=== PATIENT | male | born 1990 ===

== ENCOUNTER 2017-02-14 13:34 | Emergency (ER) | payer OTHER ==
[2017-02-14 13:44] VITALS: TEMP 98.5; BMI 25.8
--- NOTE | 2017-02-14 14:33 | ED PDOC ---
Arrival/HPI - General Chief Complaint: Shortness Of Breath Time Seen by Provider: 02/14/17 14:10 Historian: Patient - History of Present Illness Narrative History of Present Illness (Text): 02/14/17 14:10 Patient still in waiting room 02/14/17 14:50 This 26 yo male who denies pmh, presents to this ED c/o palpitation, sob, diaphoresis, feeling nervousness x [employer]. Patient admits having similar symptoms in the past. He stated he normally does exercise when he feels anxious. Today , after eating lunch, he felt mild anxious, so he started playing soccer. After he game, while resting, his "anxiety" worsen. He never look for medical treatment in the past. Patient denies syncope, recent travel, sick contact, abdominal pain, or urinary symptoms. Patient admits he has a very stressful job Past Medical History - Provider Review Nursing Documentation Reviewed: Yes - Infectious Disease Hx of Infectious Diseases: None - Psychiatric Hx Substance Use: No Family/Social History - Physician Review Nursing Documentation Reviewed: Yes Family/Social History: Other (noncontributory) Smoking Status: Never Smoked Hx Alcohol Use: Yes Frequency of alcohol use: Socially Hx Substance Use: No Allergies/Home Meds Allergies/Adverse Reactions: Allergies No Known Allergies Allergy (Verified 02/14/17 14:21) Home Medications: Home Meds Medication Instructions Recorded Confirmed No Known Home Med 02/14/17 02/14/17 Review of Systems - Review of Systems Constitutional: Normal. absent: Fatigue, Weight Change, Fevers Eyes: Normal. absent: Photophobia ENT: Normal Respiratory: SOB. absent: Cough, Sputum, Wheezing Cardiovascular: Palpitations. absent: Chest Pain, Edema, Calf Pain, BARAJAS, Orthopnea, Syncope Gastrointestinal: Normal. absent: Abdominal Pain, Nausea, Vomiting Genitourinary Male: Normal. absent: Dysuria, Frequency, Hematuria Musculoskeletal: Normal. absent: Back Pain Skin: Normal Neurological: Normal. absent: Headache, Dizziness, Focal Weakness, Gait Changes , Speech Changes Endocrine: Normal Hemo/Lymphatic: Normal Psychiatric: Anxiety. absent: Depression, Suicidal Ideation Physical Exam Vital Signs Temp Pulse Resp BP Pulse Ox 02/14/17 19:17 95 H 18 136/83 97 02/14/17 15:26 89 18 132/74 98 02/14/17 13:45 22 98 02/14/17 13:41 98.5 F 114 H 20 130/84 100 Temperature: Afebrile Blood Pressure: Normal Pulse: Regular Respiratory Rate: Tachypneic Appearance: Positive for: Well-Appearing, Non-Toxic, Comfortable Pain Distress: None Mental Status: Positive for: Alert and Oriented X 3 - Systems Exam Head: Present: Atraumatic, Normocephalic Pupils: Present: PERRL Extroacular Muscles: Present: EOMI Conjunctiva: Present: Normal Mouth: Present: Moist Mucous Membranes Neck: Present: Normal Range of Motion Respiratory/Chest: Present: Clear to Auscultation, Good Air Exchange. No: Respiratory Distress, Accessory Muscle Use Cardiovascular: Present: Regular Rate and Rhythm, Normal S1, S2. No: Murmurs Abdomen: Present: Normal Bowel Sounds. No: Tenderness, Distention, Peritoneal Signs Back: Present: Normal Inspection Upper Extremity: Present: Normal Inspection. No: Cyanosis, Edema Lower Extremity: Present: Normal Inspection. No: Edema Neurological: Present: GCS=15, CN II-XII Intact, Speech Normal Skin: Present: Warm, Dry, Normal Color. No: Rashes Psychiatric: Present: Alert, Oriented x 3, Anxious. No: Suicidal Ideation, Homicidal Ideation, Delusional Medical Decision Making ED Course and Treatment: 02/14/17 19:04 Re-evaluation. Patient feels better. Discussed results and plan with patient who expresses understanding. All questions answered and there is agreement with the plan to discharge home with instructions. Patient stable for discharge. Return if symptoms persist or worsen. Re-evaluation Time: 19:04 Reassessment Condition: Re-examined, Improved - Lab Interpretations Lab Results: 02/14/17 15:30 02/14/17 15:30 Lab Results 02/14/17 15:30: Sodium 142, Potassium 4.5, Chloride 105, Carbon Dioxide 26, Anion Gap 16, BUN 12, Creatinine 0.8, Est GFR ( Amer) > 60, Est GFR (Non- Af Amer) > 60, Random Glucose 105, Calcium 9.7, Magnesium 2.0, Total Bilirubin 0.5, AST 29, ALT 27, Alkaline Phosphatase 68, Total Protein 7.5, Albumin 4.8, Globulin 2.8, Albumin/Globulin Ratio 1.7 02/14/17 15:30: D-Dimer, Quantitative 388 H 02/14/17 15:30: WBC 8.4, RBC 4.70, Hgb 13.6 L, Hct 40.4 L, MCV 86.0, MCH 28.9, MCHC 33.7, RDW 12.0, Plt Count 238, MPV 10.3, Gran % 74.5 H, Lymph % (Auto) 18.3 L, Tillman % (Auto) 6.7 H, Eos % (Auto) 0.4 L, Baso % (Auto) 0.1, Gran # 6.22 , Lymph # 1.5, Tillman # 0.6, Eos # 0.0, Baso # 0.01 I have reviewed the lab results: Yes Interpretation: No clinic. lab abnormalty (except for elevated Ddimer) - RAD Interpretation Narrative RAD Interpretations (Text): 02/14/17 19:04 Accession No. : [id number] Patient Name / ID : ERICK MAGALLON / [id number] Exam Date : 02/14/2017 16:58:14 ( Approved ) Study Comment : Sex / Age : M / 26Y Creator : Kodak Johnson MD Dictator : Human Factors Specialist : Truck Service Manager : Kodak Johnson MD Approver2 : Report Date : 02/14/2017 18:49:24 My Comment : PROCEDURE: CT Chest with contrast (Pulmonary Angiogram) HISTORY: sob COMPARISON: None available. TECHNIQUE: Axial computed tomography images were obtained of the chest in the pulmonary arterial phase of enhancement. Coronal and sagittal reformatted images were created and reviewed. Intravenous contrast dose: 100 cc Visipaque 320 Radiation dose: Total exam DLP = 471.91 mGy-cm. This CT exam was performed using one or more of the following dose reduction techniques: Automated exposure control, adjustment of the mA and/or kV according to patient size, and/or use of iterative reconstruction technique. Note the examination is somewhat limited due to streak and beam hardening artifact FINDINGS: PULMONARY ARTERIES: The visualized pulmonary trunk, right and left main, segmental and proximal subsegmental branches of the pulmonary arteries appear well opacified with no definitive filling defects seen to suggest acute pulmonary embolus. AORTA: The ascending thoracic aorta measures approximately 2.79 cm and descending thoracic aorta measures approximately 1.98 cm. LUNGS: Unremarkable. No nodule, mass or pulmonary consolidation. PLEURAL SPACES: Unremarkable. No effusion or pneumothorax HEART: Unremarkable. No cardiomegaly. No significant pericardial effusion. . .. LYMPH NODES: No significant mediastinal or hilar adenopathy BONES, CHEST WALL: The vertebral bodies intact with no evidence of acute or chronic compression fractures nor retropulsed fragments. Minimal multilevel degenerative spondylosis. OTHER FINDINGS: Unremarkable. IMPRESSION: Limited study due to streak and beam hardening artifact. . No evidence of acute central pulmonary embolus. Radiology Orders: 02/14/17 14:57 CHEST PORTABLE [RAD] Stat 02/14/17 16:11 ANGIO CHEST PE PROTOCOL [CT] Stat - EKG Interpretation Interpreted by ED Physician: Yes (sinus tachycardia @ 104 bpm. Normal interval) Type: 12 lead EKG Comparison: No previous EKG avail. - Medication Orders Current Medication Orders: Discontinued Medications Alprazolam (Xanax) 0.25 mg PO STAT STA PRN Reason: Protocol Stop: 02/14/17 14:59 Last Admin: 02/14/17 15:43 Dose: 0.25 mg Disposition/Present on Arrival - Present on Arrival Any Indicators Present on Arrival: No History of DVT/PE: No History of Uncontrolled Diabetes: No Urinary Catheter: No History of Decub. Ulcer: No History Surgical Site Infection Following: None - Disposition Have Diagnosis and Disposition been Completed?: Yes Diagnosis: Shortness of breath, Chest pain, Feeling anxious Disposition: HOME/ ROUTINE Disposition Time: 19:05 Patient Plan: Discharge Condition: GOOD Discharge Instructions (ExitCare): Chest Pain (ED) Additional Instructions: Call private doctor for follow up visit in 1-2 days. Return to emergency if symptoms worsen. Try to do relaxation technique to cope with your stress. Referrals: PCP,NO [Primary Care Provider] - Follow up with primary Cyrli Dominique MD [Staff Provider] - Follow up with primary Forms: [employer] (Sl[place]ak)
[2017-02-14 15:28] VITALS: RESP 18
[2017-02-14 15:45] LABS: BASO # 0.01 K/mm3 (0.0-2.0); BASO % 0.1 % (0.0-3.0); EOS % 0.4 % (1.5-5.0); GRAN # 6.22 (1.4-6.5); GRAN % 74.5 % (50.0-68.0); HEMATOCRIT 40.4 % (42.0-52.0); LYMPH # 1.5 (1.2-3.4); LYMPH % 18.3 % (22.0-35.0); MEAN CORPUSCULAR HEMOGLOBIN 28.9 pg (25.0-35.0); MEAN CORPUSCULAR HGB CONC 33.7 g/dl (31.0-37.0); MEAN PLATELET VOLUME 10.3 fl (7.0-11.0); MONO # 0.6 (0.1-0.6); MONO % 6.7 % (1.0-6.0); WHITE BLOOD COUNT 8.4 10^3/ul (4.5-11.0)
[2017-02-14 15:53] LABS: ALB/GLOB RATIO 1.7 (1.1-1.8); ALKALINE PHOSPHATASE 68 U/L (38-126); ALT/SGPT 27 U/L (7-56); AST/SGOT 29 U/L (17-59); BILIRUBIN,TOTAL 0.5 mg/dL (0.2-1.3); BLOOD UREA NITROGEN 12 mg/dL (7-21); CALCIUM 9.7 mg/dL (8.4-10.5); CARBON DIOXIDE 26 mmol/L (21-33); CHLORIDE 105 mmol/L (98-107); GFR AFRICAN-AMERICAN > 60; GLUCOSE,RANDOM 105 mg/dL (70-110); POTASSIUM 4.5 mmol/L (3.6-5.0); SODIUM 142 mmol/L (132-148); TOTAL PROTEIN 7.5 g/dL (5.8-8.3)
--- NOTE | 2017-02-14 16:13 | RAD ---
HISTORY: sob COMPARISON: No prior. FINDINGS: LUNGS: No active pulmonary disease. PLEURA: No significant pleural effusion identified, no pneumothorax apparent. CARDIOVASCULAR: Normal. OSSEOUS STRUCTURES: No significant abnormalities. VISUALIZED UPPER ABDOMEN: Normal. OTHER FINDINGS: None. IMPRESSION: No active disease.
[2017-02-14] MEDS ORDERED: Iodixanol 320 MG/ML 100 ML BOTTLE IV ONE (16:16)
--- NOTE | 2017-02-14 18:51 | CT ---
PROCEDURE: CT Chest with contrast (Pulmonary Angiogram) HISTORY: sob COMPARISON: None available. TECHNIQUE: Axial computed tomography images were obtained of the chest in the pulmonary arterial phase of enhancement. Coronal and sagittal reformatted images were created and reviewed. Intravenous contrast dose: 100 cc Visipaque 320 Radiation dose: Total exam DLP = 471.91 mGy-cm. This CT exam was performed using one or more of the following dose reduction techniques: Automated exposure control, adjustment of the mA and/or kV according to patient size, and/or use of iterative reconstruction technique. Note the examination is somewhat limited due to streak and beam hardening artifact FINDINGS: PULMONARY ARTERIES: The visualized pulmonary trunk, right and left main, segmental and proximal subsegmental branches of the pulmonary arteries appear well opacified with no definitive filling defects seen to suggest acute pulmonary embolus. AORTA: The ascending thoracic aorta measures approximately 2.79 cm and descending thoracic aorta measures approximately 1.98 cm. LUNGS: Unremarkable. No nodule, mass or pulmonary consolidation. PLEURAL SPACES: Unremarkable. No effusion or pneumothorax HEART: Unremarkable. No cardiomegaly. No significant pericardial effusion. . .. LYMPH NODES: No significant mediastinal or hilar adenopathy BONES, CHEST WALL: The vertebral bodies intact with no evidence of acute or chronic compression fractures nor retropulsed fragments. Minimal multilevel degenerative spondylosis. OTHER FINDINGS: Unremarkable. IMPRESSION: Limited study due to streak and beam hardening artifact. . No evidence of acute central pulmonary embolus.
[2017-02-14 19:17] VITALS: BP 136/83; PULSE 95; O2SAT 97
--- NOTE | 2017-02-14 20:40 | CARD ---
APPROVED REPORT EKG Measurement Heart [id number] <Conclusion> Sinus tachycardia Otherwise normal ECG
== END 2017-02-14 19:20 | disposition home or self-care (01) ==
LOC: ED 13:34
DX: R07.9 Chest pain, unspecified (principal); R06.02 Shortness of breath; F41.9 Anxiety disorder, unspecified
CPT/HCPCS: 71010; 71275; 80053; 83735; 85025; 85378; 93005; 99284; Q9967